=== PATIENT | male | born 1965 | race American Indian/Alaskan Native ===

== ENCOUNTER → 2017-06-28 | Day surgery (SDC) | payer MEDICARE ==
[~2017-06-28] MED LIST: Lactated Ringer's 1,000 ML IV ONE; Lidocaine PF 2% (5 ml) Inj (For Cardiac Arrhy) IV ONE; Propofol 10 mg/ml Inj (20 ML) ONE
[2017-06-28 09:21] VITALS: O2SAT 100
[2017-06-28 11:03] VITALS: RESP 16; TEMP 97
[2017-06-28 11:32] VITALS: BP 117/59; PULSE 73
== END | disposition home or self-care (01) ==
LOC: H.ENDO 08:34
PROVIDERS: ATTEND Internal Medicine Gastroenterology
DX: Z12.11 Encounter for screening for malignant neoplasm of colon (principal); Z80.0 Family history of malignant neoplasm of digestive organs; K64.8 Other hemorrhoids; D12.3 Benign neoplasm of transverse colon
CPT/HCPCS: 45380; 88305; J2001; J2704; J7120